=== PATIENT | female | born 1990 | race African-American/Black ===

== ENCOUNTER 2021-08-14 21:00 | Emergency (ER) | payer BC, SELFPAY ==
--- NOTE | ~2021-08-14 | XR_ITS ---
XR tibia fibula LT 2V 08/14/2021 21:58 INDICATION: Left leg pain after trauma PROCEDURE: 2 views left tibia/fibula COMPARISON: No prior studies for comparison. FINDINGS: Fracture, dislocation or subluxation is not identified. The soft tissues appear within norm al limits. No foreign bodies are identified. IMPRESSION: 1: NO ACUTE BONE OR JOINT ABNORMALITY IDENTIFIED. Reviewed, dictated and finalized at location A.
[2021-08-14 21:04] VITALS: BP 143/90; PULSE 105; RESP 18; TEMP 36.8; O2SAT 100
--- NOTE | 2021-08-14 21:42 | ED.LOWEXIN ---
HPI - Extremity Injury (Lower) General Chief Complaint: Extremity Injury, Lower <Tiana Roa PA-C - Last Filed: 08/15/21 01:55> Stated Complaint: Left leg pain <STEPHANIA Hernández Last Filed: 08/15/21 01:55> Time Seen by Provider: 08/14/21 21:02 <STEPHANIA Hernández Last Filed: 08/15/21 01:55> Source: patient <STEPHANIA Hernández Last Filed: 08/15/21 01:55> Mode of arrival: ambulatory <STEPHANIA Hernández Last Filed: 08/15/21 01:55> Limitations: no limitations <STEPHANIA Hernández Last Filed: 08/15/21 01:55> History of Present Illness HPI Narrative: Patient is a 31-year-old female who presents the ED with report of left calf pain. Patient reports she was walking up her stairs around 7 pm tonight when her approximately 30 pound dog ran directly into her left calf. She then stumbled up the stairs, but did not fall. She complains of pain to her left mid calf, and has had difficulty ambulating or bearing full weight on her left lower extremity since the incident due to the pain. The pain is worse with dorsiflexion of her left ankle. She has not noticed any bruising. She also reports having mild tingling in her left lower leg, but denies any numbness, weakness, L knee pain, pain in L foot, pain with plantar flexion, or other injuries. She took Naproxen at home prior to arrival to the ED and does not want anything else for pain at this time. <STEPHANIA Hernández Last Filed: 08/15/21 01:55> Review of Systems Review of Systems: CONSTITUTIONAL: Denies fever, chills, or sweats. MUSCULOSKELETAL: Reports pain to left calf. Denies left knee pain, left foot pain, back pain. NEUROLOGIC: Reports tingling to left lower leg. Denies HI, LOC, numbness, or weakness. <STEPHANIA Hernández Last Filed: 08/15/21 01:55> All systems reviewed & are unremarkable except as noted in HPI and below <Tiana Roa PA-C - Last Filed: 08/15/21 01:55> PMFSH Past Medical History Medical History: Medical History No pertinent past medical history <Tiana Roa PA-C - Last Filed: 08/15/21 01:55> Surgical History Surgical History: Surgical History No pertinent past surgical history <Tiana Roa PA-C - Last Filed: 08/15/21 01:55> Social History Social History: Social History Smoking status: Never smoker <Tiana Roa PA-C - Last Filed: 08/15/21 01:55> Exam Narrative: GENERAL: Well appearing, well-nourished, non-toxic, in no acute distress. HEAD: Normocephalic, atraumatic. NECK: Supple. No adenopathy, no masses. RESPIRATORY: Airway patent, respirations nonlabored. CARDIOVASCULAR: Regular rate and rhythm without murmurs, rubs, or gallops. DP/PT pulses 2+ and equal bilaterally. MUSCULOSKELETAL: Moves all extremities. Decreased range of motion of left ankle dorsiflexion due to pain. Full range of motion of left ankle plantarflexion. Patient able to bear partial weight of LLE in exam room. No gross deformities. Mild tenderness to palpation of posterior calf over area of medial gastrocnemius. No tenderness to palpation of L Achilles tendon. No significant swelling. Minimal ecchymosis noted. No erythema, induration, or warmth. No tenderness palpation of left knee, left ankle, left foot. SKIN: Warm, dry, normal color. No rashes. NEURO: A&O X3. Speech clear. Cranial nerves II-XII grossly intact. No ataxic movements. PSYCHIATRIC: Appropriate mood and affect. Normal interaction. <Tiana Roa PA-C - Last Filed: 08/15/21 01:55> Course OFFICE ASST/PA Physician Supervision For this patient encounter, I reviewed the OFFICE ASST or PA documentation, treatment plan, and medical decision making <Jean Sanabria MD - Last Filed: 08/15/21 03:44> Vital Signs Vital signs: Vital Signs Temperature 98.2 F 08/14/21
--- NOTE | 2021-08-14 23:06 | PC.NURSE ---
Ronni wrap applied to patient's left calf. PMS intact prior and post application.
== END 2021-08-14 23:08 | disposition home or self-care (01) ==
PROVIDERS: Emergency Provider Emergency Medicine; PCP Internal Medicine
DX: S86.912A Strain of unspecified muscle(s) and tendon(s) at lower leg level, left leg, initial encounter (principal); W54.1XXA Struck by dog, initial encounter
CPT/HCPCS: 73590; 99283